=== PATIENT | male | born 1945 | race Caucasian/White ===

== ENCOUNTER 2018-03-12 14:21 | Inpatient (IN) | payer SELFPAY ==
[~2018-03-12] VITALS: Ht 167.6 cm; Wt 54.5 kg
[~2018-03-12 14:21] MED LIST: ALPR0.5T6 PO; ATEN1TAB4 PO; ATOR20TA58 PO; CITA10TA8 PO; GLIM2TAB2 PO; LISI-338 PO; METF500T16 PO
--- NOTE | 2018-03-12 14:30 | PHYS DOC ---
Past Medical History Past Medical History: Diabetes-Type II, Hypertension Past Surgical History: Cholecystectomy Alcohol Use: Rarely Drug Use: None Adult General HPI HPI 72-year-old male presents to ER via EMS after a fall at 1400 while walking to the bathroom. Patient reports he slipped causing him to fall backwards. Patient reports he struck the back of his head on the floor denies any loss of consciousness. Patient denies any neck or back pain. Patient denies any chest pain or symptoms prior to the fall. Patient states he does have a walker at home he uses but was not using at time of this fall. Patient reports over the past 1-2 weeks he has gradually been getting increasingly more fatigued denies any focal neuro deficits. Review of Systems Review of Systems Constitutional: Denies fever or chills. Denies LOC/lethargy. Reports generalized fatigue which has been gradually worsening over past 1-2 wks Eyes: Denies change in visual acuity, redness, or eye pain [] HENT: Denies nose bleed Respiratory: Denies cough or shortness of breath [] Cardiovascular: Denies CP/palpitations GI: Denies abdominal pain, nausea, vomiting, bloody stools or diarrhea. Reports was on way to bathroom- when he fell he was unable to get up in time. Pt reports he did have BM in his pants not at time of fall- he reports BM occurred after fall and during his attempt to get off floor : Denies dysuria or hematuria Musculoskeletal: Denies back/neck pain or joint pain [] Integument: Denies rash or skin lesions [] Neurologic: Denies headache, focal weakness or sensory changes [] All other systems were reviewed and found to be within normal limits, except as documented in this note. Allergies Allergies Allergies Coded Allergies Type Severity Reaction Last Updated Verified No Known Drug Allergies 03/02/18 No Physical Exam Physical Exam Constitutional: Well developed, well nourished, no acute distress, non-toxic appearance. Clear speech HENT: Normocephalic, tender to palp. posterior head- no open wounds/swelling- small area of ecchymosis, bilateral ears normal, oropharynx moist, no oral exudates/injury, nose normal. [] Eyes: 3mm PERRLA, EOMI- no pain with eye movements, no nystagmus, conjunctiva normal, no discharge. [] Neck: Normal range of motion, no tenderness- no midline cervical tenderness/ palp. deformity, supple, no stridor. [] Cardiovascular:Heart rate regular rhythm, no murmur [] Lungs & Thorax: Bilateral breath sounds clear to auscultation. Resp. equal/ nonlabored- no chest wall tenderness or injury Abdomen: Bowel sounds normal, soft- no distention/rigidity, no tenderness, no masses, no pulsatile masses. [] Skin: Warm, dry, no erythema, no rash. [] Back: No tenderness- no midline spinal tenderness- no visible injury, no CVA tenderness. [] Extremities: Pelvis stable/nontender. No tenderness, no cyanosis, no clubbing, ROM intact, no edema. [] Neurologic: Alert and oriented X 3, normal motor function, normal sensory function, no focal deficits noted. [] Psychologic: Affect normal, judgement normal, mood normal. [] Current Patient Data Vital Signs Vital Signs Date Time Temp Pulse Resp B/P (MAP) Pulse Ox O2 Delivery O2 Flow Rate FiO2 03/12/18 14:21 97.6 70 20 165/89 (114) 98 Room Air 97.6 Lab Values Laboratory Tests Test 03/12/18 14:35 03/12/18 14:39 White Blood Count 9.3 x10^3/uL (4.0-11.0) Red Blood Count 4.31 x10^6/uL (4.30-5.70) Hemoglobin 12.4 g/dL (13.0-17.5) L Hematocrit 36.5 % (39.0-53.0) L Mean Corpuscular Volume 85 fL (79-100) Mean Corpuscular Hemoglobin 29 pg (25-35) Mean Corpuscular Hemoglobin Concent 34 g/dL (31-37) Red Cell Distribution Width 14.9 % (11.5-14.5) H Platelet Count 227 x10^3/uL (140-400) Neutrophils (%) (Auto) 79 % (31-73) H Lymphocytes (%) (Auto) 14 % (24-48) L Monocytes (%) (Auto) 6 % (0-9) Eosinophils (%) (Auto) 0 % (0-3) Basophils (%) (Auto) 0 % (0-3) Neutrophils # (Auto) 7.3 x10^3uL (1.8-7.7) Lymphocytes # (Auto) 1.3 x10^3/uL (1.0-4.8) Monocytes # (Auto) 0.5 x10^3/uL (0.0-1.1) Eosinophils # (Auto) 0.0 x10^3/uL (0.0-0.7) Basophils # (Auto) 0.0 x10^3/uL (0.0-0.2) Sodium Level 140 mmol/L (136-145) Potassium Level 4.3 mmol/L (3.5-5.1) Chloride Level 99 mmol/L (98-107) Carbon Dioxide Level 28 mmol/L (21-32) Anion Gap 13 (6-14) Blood Urea Nitrogen 15 mg/dL (8-26) Creatinine 1.4 mg/dL (0.7-1.3) H Estimated GFR (Cockcroft-Gault) 49.8 BUN/Creatinine Ratio 11 (6-20) Glucose Level 126 mg/dL (70-99) H Calcium Level 9.2 mg/dL (8.5-10.1) Magnesium Level 1.9 mg/dL (1.8-2.4) Total Bilirubin 0.7 mg/dL (0.2-1.0) Aspartate Amino Transferase (AST) 35 U/L (15-37) Alanine Aminotransferase (ALT) 46 U/L (16-63) Alkaline Phosphatase 112 U/L (46-116) Troponin I Quantitative 0.029 ng/mL (0.000-0.055) Total Protein 6.3 g/dL (6.4-8.2) L Albumin 3.2 g/dL (3.4-5.0) L Albumin/Globulin Ratio 1.0 (1.0-1.7) Stool Occult Blood Negative (NEG) Laboratory Tests 03/12/18 14:35 Laboratory Tests 03/12/18 14:35 EKG EKG [] Radiology/Procedures Radiology/Procedures [] Course & Med Decision Making Course & Med Decision Making Pertinent Labs and Imaging studies reviewed. (See chart for details) [] Dragon Disclaimer Dragon Disclaimer This electronic medical record was generated, in whole or in part, using a voice recognition dictation system. Departure Departure Referrals: Snehal GONZÁLES MD (PCP) TICO GARCIA WHIPPER BEATER Mar 12, 2018 14:30
--- NOTE | 2018-03-12 14:40 | EKG ---
[facility] [address] [place] [address] Test Date: 2018-03-12 Test Time: 14:31:34 Pat Name: SABRA CAGLE Department: Room: Gender: M Civil Rights Representative: : 1945 Requested By: TICO GARCIA Order Number: [id number] Reading MD: Axel Pandey MD Measurements Intervals [place] Rate: 67 P: ND: QRS: -12 QRSD: 68 T: 56 QT: 394 QTc: 419 Interpretive Statements PROBABLE SR BASELINE ARTIFACT RECOMMEND REPEAT EKG Electronically Signed On 03-16-2018 8:36:07 SUBSTANCE ABUSE PREVENTION COORDINATOR by Axel Pandey MD
[2018-03-12 14:53] LABS: BASO % 0 % (0-3); EOS % 0 % (0-3); HEMATOCRIT 36.5 % (39.0-53.0); HEMOGLOBIN 12.4 g/dL (13.0-17.5); LYMPH # 1.3 x10^3/uL (1.0-4.8); LYMPH % 14 % (24-48); MEAN CORPUSCULAR HEMOGLOBIN 29 pg (25-35); MEAN CORPUSCULAR HGB CONC 34 g/dL (31-37); MEAN CORPUSCULAR VOLUME 85 fL (79-100); MONO # 0.5 x10^3/uL (0.0-1.1); MONO % 6 % (0-9); NEUT # 7.3 x10^3uL (1.8-7.7); NEUT % 79 % (31-73); PLATELET COUNT 227 x10^3/uL (140-400); RED BLOOD COUNT 4.31 x10^6/uL (4.30-5.70); RED CELL DISTRIBUTION WIDTH 14.9 % (11.5-14.5); WHITE BLOOD COUNT 9.3 x10^3/uL (4.0-11.0)
[2018-03-12 15:02] LABS: FECAL OB PT NEGATIVE (NEG)
[2018-03-12 15:08] LABS: CALCIUM 9.2 mg/dL (8.5-10.1); CREATININE 1.4 mg/dL (0.7-1.3); GFR 49.8; POTASSIUM 4.3 mmol/L (3.5-5.1)
--- NOTE | 2018-03-12 15:09 | RAD ---
Exam: AP portable chest History: Weakness, fall. Comparison: March 04, 2018. Findings: The heart and mediastinal structures are within normal limits for size. Lungs are without infiltrate. No pleural effusion or pneumothorax is identified. Cholecystectomy clips are seen. Impression: 1. No acute cardiopulmonary process. Electronically signed by: Mario Newton MD (03/12/2018 3:05 PM) [facility]
[2018-03-12 15:13] LABS: ALBUMIN 3.2 g/dL (3.4-5.0); MAGNESIUM 1.9 mg/dL (1.8-2.4); TOTAL BILIRUBIN 0.7 mg/dL (0.2-1.0); TOTAL PROTEIN 6.3 g/dL (6.4-8.2)
--- NOTE | 2018-03-12 15:35 | RAD ---
Examination: CT head and cervical spine without contrast HISTORY: History of fall, hitting the head COMPARISON: 03/05/2018 Exposure: One or more of the following individualized dose reduction techniques were utilized for this examination: 1. Automated exposure control 2. Adjustment of the mA and/or kV according to patient size 3. Use of iterative reconstruction technique TECHNIQUE: Axial CT images of the head was performed without contrast. Coronal reformats are performed. FINDINGS: There is no evidence of midline shift. The previously visualized bifrontal intraparenchymal bleeds again identified and have mildly decreased compared to prior exam. Mild vasogenic edema appears slightly more prominent compared to prior exam. There is mild increased density along the left tentorium likely small subdural bleed improved since prior exam. Mild prominent appearing lateral ventricles are again identified The basal cisterns are uneffaced. CT CERVICAL SPINE COMPARISON: None Available. Technique: 2.5 mm contiguous axial images were obtained from the skull base through the cervicothoracic junction in both bone and soft tissue algorithm. Additional sagittal and coronal reconstructions were also performed. FINDINGS: Vertebral body height and alignment are maintained. Cervical lordosis is preserved. The lateral masses of C1 are aligned upon C2. No fractures identified. The bony canal is patent throughout. Mild intervertebral disc height loss identified in the cervical spine throughout with moderate size anterior osteophyte formation identified at C2, C4, C5, C6 vertebral levels. The bilateral facets are well aligned. The paraspinous soft tissues are unremarkable. Impression: 1. Improved bifrontal intraparenchymal bleeds and the subdural bleed along the left tentorium slightly less prominent compared to prior exam. 2. No acute fracture the cervical spine. Correlate clinically. 3. Moderate degenerative changes cervical spine. Electronically signed by: Lukasz Huggins MD (03/12/2018 3:32 PM) [facility] [place] [facility]
[2018-03-12 16:52] LABS: BILIRUBIN,URINE NEGATIVE (NEG); CLARITY,URINE CLOUDY; COLOR,URINE YELLOW; NITRITE,URINE NEGATIVE (NEG); PH,URINE 5.5; PROTEIN,URINE NEGATIVE (NEG-TRACE)
[2018-03-12 17:07] LABS: BACTERIA,URINE 0 /HPF (0-FEW); HYALINE CASTS, URINE MODERATE /HPF
[2018-03-12 19:00] VITALS: BP 138/58
[2018-03-12 23:00] VITALS: BP 116/64
[2018-03-13 03:00] VITALS: BP 130/66
[2018-03-13 07:00] VITALS: BP 133/70
--- NOTE | 2018-03-13 08:58 | PDOC1 ---
History and Physical Date of Admission Date of Admission 03/12/18 Identification/Chief Complaint Chief Complaint He fell at home on the way to have a BM and was unable to get up and soiled himself. He got his walker at recent discharge but was not using it at the time of fall. He lives with his brother in a house with no power due to inability to pay bills. 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 His brain imaging studies show continued improvement of his recent subdural and ICH from a prior fall. No other significant medical issues Source Source: Patient History of Present Illness History of Present Illness as above in CC Past Medical History Cardiovascular: HTN Pulmonary: No pertinent hx Psych: Anxiety Renal/: No pertinent hx Endocrine: Diabetes Past Surgical History Past Surgical History: No pertinent history Family History Family History: Other Social History Smoke: No ALCOHOL: none Drugs: None Allergies Allergies Allergies Coded Allergies Type Severity Reaction Last Updated Verified No Known Drug Allergies 03/02/18 No ROS Review of System CONSTITUTIONAL: No fever or chills EYES: No recent changes SKIN: No rash or itching CARDIOVASCULAR: No chest pain, syncope, palpitations, or edema RESPIRATORY: No SOB or cough GASTROINTESTINAL: stool urgency but no diarrhea NEUROLOGICAL: resolved headache but ongoing slowly improving weakness ENDOCRINE: No cold or heat intolerance GENITOURINARY: No urgency or frequency of urination MUSCULOSKELETAL: No back pain or joint pain LYMPHATICS: No enlarged lymph nodes PSYCHIATRIC: hx anxiety/depression but did not fill Rx for citalopram Physical Exam Physical Exam GEN.: No apparent distress. Alert and oriented. HEENT: Head is normocephalic, atraumatic NECK: Supple. LUNGS: Clear to auscultation. HEART: RRR, S1, S2 present. Peripheral pulses intact ABDOMEN: Soft, nontender. Positive bowel sounds. EXTREMITIES: Without any cyanosis. NEUROLOGIC: Normal speech, normal tone PSYCHIATRIC: Normal affect, normal mood. SKIN: No ulcerations Vitals Vitals Vital Signs Date Time Temp Pulse Resp B/P (MAP) Pulse Ox O2 Delivery O2 Flow Rate FiO2 03/13/18 07:00 98.5 70 18 133/70 (91) 98 Room Air 98.5 Labs Labs Laboratory Tests Test 03/12/18 14:35 03/12/18 14:39 03/12/18 16:39 White Blood Count 9.3 x10^3/uL (4.0-11.0) Red Blood Count 4.31 x10^6/uL (4.30-5.70) Hemoglobin 12.4 g/dL (13.0-17.5) Hematocrit 36.5 % (39.0-53.0) Mean Corpuscular Volume 85 fL (79-100) Mean Corpuscular Hemoglobin 29 pg (25-35) Mean Corpuscular Hemoglobin Concent 34 g/dL (31-37) Red Cell Distribution Width 14.9 % (11.5-14.5) Platelet Count 227 x10^3/uL (140-400) Neutrophils (%) (Auto) 79 % (31-73) Lymphocytes (%) (Auto) 14 % (24-48) Monocytes (%) (Auto) 6 % (0-9) Eosinophils (%) (Auto) 0 % (0-3) Basophils (%) (Auto) 0 % (0-3) Neutrophils # (Auto) 7.3 x10^3uL (1.8-7.7) Lymphocytes # (Auto) 1.3 x10^3/uL (1.0-4.8) Monocytes # (Auto) 0.5 x10^3/uL (0.0-1.1) Eosinophils # (Auto) 0.0 x10^3/uL (0.0-0.7) Basophils # (Auto) 0.0 x10^3/uL (0.0-0.2) Sodium Level 140 mmol/L (136-145) Potassium Level 4.3 mmol/L (3.5-5.1) Chloride Level 99 mmol/L (98-107) Carbon Dioxide Level 28 mmol/L (21-32) Anion Gap 13 (6-14) Blood Urea Nitrogen 15 mg/dL (8-26) Creatinine 1.4 mg/dL (0.7-1.3) Estimated GFR (Cockcroft-Gault) 49.8 BUN/Creatinine Ratio 11 (6-20) Glucose Level 126 mg/dL (70-99) Calcium Level 9.2 mg/dL (8.5-10.1) Magnesium Level 1.9 mg/dL (1.8-2.4) Total Bilirubin 0.7 mg/dL (0.2-1.0) Aspartate Amino Transf (AST/SGOT) 35 U/L (15-37) Alanine Aminotransferase (ALT/SGPT) 46 U/L (16-63) Alkaline Phosphatase 112 U/L (46-116) Troponin I Quantitative 0.029 ng/mL (0.000-0.055) Total Protein 6.3 g/dL (6.4-8.2) Albumin 3.2 g/dL (3.4-5.0) Albumin/Globulin Ratio 1.0 (1.0-1.7) Stool Occult Blood Negative (NEG) Urine Collection Type Unknown Urine Color Yellow Urine Clarity Cloudy Urine pH 5.5 Urine Specific [place] 1.020 Urine Protein Negative mg/dL (NEG-TRACE) Urine Glucose (UA) Negative mg/dL (NEG) Urine Ketones (Stick) 40 mg/dL (NEG) Urine Blood Negative (NEG) Urine Nitrite Negative (NEG) Urine Bilirubin Negative (NEG) Urine Urobilinogen Dipstick 1.0 mg/dL (0.2 mg/dL) Urine Leukocyte Esterase Negative (NEG) Urine RBC 1-2 /HPF (0-2) Urine WBC 1-4 /HPF (0-4) Urine Bacteria 0 /HPF (0-FEW) Urine Hyaline Casts Moderate /HPF Urine Mucus Slight /LPF Laboratory Tests Test 03/12/18 14:35 03/12/18 14:39 03/12/18 16:39 White Blood Count 9.3 x10^3/uL (4.0-11.0) Red Blood Count 4.31 x10^6/uL (4.30-5.70) Hemoglobin 12.4 g/dL (13.0-17.5) Hematocrit 36.5 % (39.0-53.0) Mean Corpuscular Volume 85 fL (79-100) Mean Corpuscular Hemoglobin 29 pg (25-35) Mean Corpuscular Hemoglobin Concent 34 g/dL (31-37) Red Cell Distribution Width 14.9 % (11.5-14.5) Platelet Count 227 x10^3/uL (140-400) Neutrophils (%) (Auto) 79 % (31-73) Lymphocytes (%) (Auto) 14 % (24-48) Monocytes (%) (Auto) 6 % (0-9) Eosinophils (%) (Auto) 0 % (0-3) Basophils (%) (Auto) 0 % (0-3) Neutrophils # (Auto) 7.3 x10^3uL (1.8-7.7) Lymphocytes # (Auto) 1.3 x10^3/uL (1.0-4.8) Monocytes # (Auto) 0.5 x10^3/uL (0.0-1.1) Eosinophils # (Auto) 0.0 x10^3/uL (0.0-0.7) Basophils # (Auto) 0.0 x10^3/uL (0.0-0.2) Sodium Level 140 mmol/L (136-145) Potassium Level 4.3 mmol/L (3.5-5.1) Chloride Level 99 mmol/L (98-107) Carbon Dioxide Level 28 mmol/L (21-32) Anion Gap 13 (6-14) Blood Urea Nitrogen 15 mg/dL (8-26) Creatinine 1.4 mg/dL (0.7-1.3) Estimated GFR (Cockcroft-Gault) 49.8 BUN/Creatinine Ratio 11 (6-20) Glucose Level 126 mg/dL (70-99) Calcium Level 9.2 mg/dL (8.5-10.1) Magnesium Level 1.9 mg/dL (1.8-2.4) Total Bilirubin 0.7 mg/dL (0.2-1.0) Aspartate Amino Transf (AST/SGOT) 35 U/L (15-37) Alanine Aminotransferase (ALT/SGPT) 46 U/L (16-63) Alkaline Phosphatase 112 U/L (46-116) Troponin I Quantitative 0.029 ng/mL (0.000-0.055) Total Protein 6.3 g/dL (6.4-8.2) Albumin 3.2 g/dL (3.4-5.0) Albumin/Globulin Ratio 1.0 (1.0-1.7) Stool Occult Blood Negative (NEG) Urine Collection Type Unknown Urine Color Yellow Urine Clarity Cloudy Urine pH 5.5 Urine Specific [place] 1.020 Urine Protein Negative mg/dL (NEG-TRACE) Urine Glucose (UA) Negative mg/dL (NEG) Urine Ketones (Stick) 40 mg/dL (NEG) Urine Blood Negative (NEG) Urine Nitrite Negative (NEG) Urine Bilirubin Negative (NEG) Urine Urobilinogen Dipstick 1.0 mg/dL (0.2 mg/dL) Urine Leukocyte Esterase Negative (NEG) Urine RBC 1-2 /HPF (0-2) Urine WBC 1-4 /HPF (0-4) Urine Bacteria 0 /HPF (0-FEW) Urine Hyaline Casts Moderate /HPF Urine Mucus Slight /LPF Images Images CT head/neck and CXR noted VTE Prophylaxis Ordered VTE Prophylaxis Devices: No VTE Pharmacological Prophylaxi: No Assessment/Plan Assessment/Plan Fall, weakness. Admitted for social media content manager, PT, OT and treatment of depression Snehal GONZÁLES MD Mar 13, 2018 08:58
[2018-03-13] MEDS: CITALOPRAM 10 MG TABLET. PO SCH (09:05)
[2018-03-13 11:00] VITALS: BP 135/66
[2018-03-13 15:00] VITALS: BP 131/65
[2018-03-13 19:00] VITALS: BP 122/68
[2018-03-13] MEDS: ATORVASTATIN CALCIUM 20 MG TABLET PO SCH (22:02)
[2018-03-13 23:00] VITALS: BP 137/71
[2018-03-14 03:00] VITALS: BP 123/68
[2018-03-14 07:00] VITALS: BP 121/65
[2018-03-14] MEDS: CITALOPRAM 10 MG TABLET. PO SCH (09:24)
--- NOTE | 2018-03-14 11:40 | PDOC ---
PROGRESS NOTES Subjective Subjective Patient without complaint. No further diarrhea, no abdominal pain. Objective Objective Vital Signs Date Time Temp Pulse Resp B/P (MAP) Pulse Ox O2 Delivery O2 Flow Rate FiO2 03/14/18 07:00 97.9 60 18 121/65 (83) 93 Room Air 97.9 Intake and Output 03/14/18 07:00 Intake Total 360 ml Output Total 1100 ml Balance -740 ml Intake Oral 360 ml Output Urine Total 1100 ml # Voids 1 Physical Exam Abdomen: Normal bowel sounds, Soft, No tenderness Heart: Regular rate Extremities: No edema General: Alert, Oriented X3, No acute distress Lungs: Clear to auscultation Plan Plan of Care 1. Debility with falls at home - stable, continue therapies. 2. Diarrhea - appears to have resolved. 3. previous ICH - CT head shows this is resolving. 4. depression - continue Celexa. Comment Review of Relevant I have reviewed the following items calderon (where applicable) has been applied. Labs Laboratory Tests Test 03/12/18 14:35 03/12/18 14:39 03/12/18 16:39 White Blood Count 9.3 x10^3/uL (4.0-11.0) Red Blood Count 4.31 x10^6/uL (4.30-5.70) Hemoglobin 12.4 g/dL (13.0-17.5) Hematocrit 36.5 % (39.0-53.0) Mean Corpuscular Volume 85 fL (79-100) Mean Corpuscular Hemoglobin 29 pg (25-35) Mean Corpuscular Hemoglobin Concent 34 g/dL (31-37) Red Cell Distribution Width 14.9 % (11.5-14.5) Platelet Count 227 x10^3/uL (140-400) Neutrophils (%) (Auto) 79 % (31-73) Lymphocytes (%) (Auto) 14 % (24-48) Monocytes (%) (Auto) 6 % (0-9) Eosinophils (%) (Auto) 0 % (0-3) Basophils (%) (Auto) 0 % (0-3) Neutrophils # (Auto) 7.3 x10^3uL (1.8-7.7) Lymphocytes # (Auto) 1.3 x10^3/uL (1.0-4.8) Monocytes # (Auto) 0.5 x10^3/uL (0.0-1.1) Eosinophils # (Auto) 0.0 x10^3/uL (0.0-0.7) Basophils # (Auto) 0.0 x10^3/uL (0.0-0.2) Sodium Level 140 mmol/L (136-145) Potassium Level 4.3 mmol/L (3.5-5.1) Chloride Level 99 mmol/L (98-107) Carbon Dioxide Level 28 mmol/L (21-32) Anion Gap 13 (6-14) Blood Urea Nitrogen 15 mg/dL (8-26) Creatinine 1.4 mg/dL (0.7-1.3) Estimated GFR (Cockcroft-Gault) 49.8 BUN/Creatinine Ratio 11 (6-20) Glucose Level 126 mg/dL (70-99) Calcium Level 9.2 mg/dL (8.5-10.1) Magnesium Level 1.9 mg/dL (1.8-2.4) Total Bilirubin 0.7 mg/dL (0.2-1.0) Aspartate Amino Transf (AST/SGOT) 35 U/L (15-37) Alanine Aminotransferase (ALT/SGPT) 46 U/L (16-63) Alkaline Phosphatase 112 U/L (46-116) Troponin I Quantitative 0.029 ng/mL (0.000-0.055) Total Protein 6.3 g/dL (6.4-8.2) Albumin 3.2 g/dL (3.4-5.0) Albumin/Globulin Ratio 1.0 (1.0-1.7) Stool Occult Blood Negative (NEG) Urine Collection Type Unknown Urine Color Yellow Urine Clarity Cloudy Urine pH 5.5 Urine Specific [place] 1.020 Urine Protein Negative mg/dL (NEG-TRACE) Urine Glucose (UA) Negative mg/dL (NEG) Urine Ketones (Stick) 40 mg/dL (NEG) Urine Blood Negative (NEG) Urine Nitrite Negative (NEG) Urine Bilirubin Negative (NEG) Urine Urobilinogen Dipstick 1.0 mg/dL (0.2 mg/dL) Urine Leukocyte Esterase Negative (NEG) Urine RBC 1-2 /HPF (0-2) Urine WBC 1-4 /HPF (0-4) Urine Bacteria 0 /HPF (0-FEW) Urine Hyaline Casts Moderate /HPF Urine Mucus Slight /LPF Medications Current Medications Atorvastatin Calcium (Lipitor) 20 mg QHS PO Last administered on 03/13/18at 22: 02; Start 03/13/18 at 21:00 Citalopram Hydrobromide (CeleXA) 10 mg DAILY PO Last administered on 03/14/18at 09:24; Start 03/13/18 at 09:00 Active Scripts Active Atorvastatin Calcium 20 Mg Tablet 20 Mg PO QHS 30 Days Celexa (Citalopram Hydrobromide) 10 Mg Tablet 10 Mg PO DAILY 30 Days Vitals/I & O Vital Sign - Last 24 Hours 03/13/18 03/13/18 03/13/18 03/13/18 15:00 19:00 20:25 23:00 Temp 98.4 98.6 98.4 98.4 98.6 98.4 Pulse 76 70 69 Resp 18 B/P (MAP) 131/65 (87) 122/68 (86) 137/71 (93) Pulse Ox 98 96 95 O2 Delivery Room Air Room Air Room Air Room Air 03/14/18 03/14/18 03/14/18 03:00 07:00 07:00 Temp 98.3 97.9 97.9 98.3 97.9 97.9 Pulse 71 60 60 Resp 18 B/P (MAP) 123/68 (86) 121/65 (83) 121/65 (83) Pulse Ox 95 93 93 O2 Delivery Room Air Room Air Room Air Intake and Output 03/13/18 03/13/18 03/14/18 15:00 23:00 07:00 Intake Total 180 ml 180 ml Output Total 300 ml 125 ml 675 ml Balance -120 ml 55 ml -675 ml Nutrition Consultation Dietary Evaluation: Recommendations by RD: Increase Calorie Intake, Protein supplementation Comments: glucerna tid Expected Outcomes/Goals: to meet > 75% est nutr needs Malnutrition Findings: Body Fat Depletion (Non Severe: Mild Depletion Weight Status: Appropriate GERONIMO KNIGHT MD Mar 14, 2018 11:40
[2018-03-14 11:50] VITALS: BP 100/59
[2018-03-14 15:43] VITALS: BP 121/65
[2018-03-14 19:00] VITALS: BP 122/69
[2018-03-14] MEDS: ATORVASTATIN CALCIUM 20 MG TABLET PO SCH (20:42)
[2018-03-14 23:00] VITALS: BP 122/58
[2018-03-15 02:55] VITALS: BP 134/65
[2018-03-15 07:00] VITALS: BP 123/63
[2018-03-15] MEDS: CITALOPRAM 10 MG TABLET. PO SCH (08:33)
[2018-03-15 11:00] VITALS: BP 117/63
--- NOTE | 2018-03-15 13:48 | PDOC ---
PROGRESS NOTES Subjective Subjective Patient without complaint. Had normal bowel movement this AM. Objective Objective Vital Signs Date Time Temp Pulse Resp B/P (MAP) Pulse Ox O2 Delivery O2 Flow Rate FiO2 03/15/18 11:00 98.5 71 18 117/63 (81) 97 Room Air 98.5 Intake and Output 03/15/18 07:00 Intake Total 840 ml Output Total 1250 ml Balance -410 ml Intake Oral 840 ml Output Urine Total 1250 ml Physical Exam Abdomen: Normal bowel sounds, Soft, No tenderness Heart: Regular rate Extremities: No edema General: Alert, Oriented X3, No acute distress Lungs: Clear to auscultation Plan Plan of Care 1. Falls at home with debility - therapies have not worked with patient for the past two days (no notes on chart). Advised increased activity level. Would benefit from long-term but this is not available to him without insurance. 2. diarrhea - resolved. Comment Review of Relevant I have reviewed the following items calderon (where applicable) has been applied. Medications Current Medications Atorvastatin Calcium (Lipitor) 20 mg QHS PO Last administered on 03/14/18at 20: 42; Start 03/13/18 at 21:00 Citalopram Hydrobromide (CeleXA) 10 mg DAILY PO Last administered on 03/15/18at 08:33; Start 03/13/18 at 09:00 Active Scripts Active Atorvastatin Calcium 20 Mg Tablet 20 Mg PO QHS 30 Days Celexa (Citalopram Hydrobromide) 10 Mg Tablet 10 Mg PO DAILY 30 Days Vitals/I & O Vital Sign - Last 24 Hours 03/14/18 03/14/18 03/14/18 03/14/18 15:43 19:00 20:00 23:00 Temp 98.5 97.8 98.3 98.5 97.8 98.3 Pulse 67 72 68 Resp 18 18 18 B/P (MAP) 121/65 (83) 122/69 (86) 122/58 (79) Pulse Ox 94 92 96 O2 Delivery Room Air Room Air Room Air Room Air 03/15/18 03/15/18 03/15/18 03/15/18 02:55 07:00 08:00 09:56 Temp 98.3 97.9 98.3 97.9 Pulse 65 64 Resp 18 18 B/P (MAP) 134/65 (88) 123/63 (83) Pulse Ox 96 98 O2 Delivery Room Air Room Air Room Air Room Air 03/15/18 11:00 Temp 98.5 98.5 Pulse 71 Resp 18 B/P (MAP) 117/63 (81) Pulse Ox 97 O2 Delivery Room Air Intake and Output 03/14/18 03/14/18 03/15/18 15:00 23:00 07:00 Intake Total 640 ml 200 ml Output Total 200 ml 600 ml 450 ml Balance -200 ml 40 ml -250 ml Nutrition Consultation Dietary Evaluation: Recommendations by RD: Increase Calorie Intake, Protein supplementation Comments: glucerna tid Expected Outcomes/Goals: to meet > 75% est nutr needs Malnutrition Findings: Body Fat Depletion (Non Severe: Mild Depletion Weight Status: Appropriate GERONIMO KNIGHT MD Mar 15, 2018 13:48
[2018-03-15 15:00] VITALS: BP 124/64
[2018-03-15 19:00] VITALS: BP 139/67
[2018-03-15] MEDS: ATORVASTATIN CALCIUM 20 MG TABLET PO SCH (21:38)
[2018-03-15 23:00] VITALS: BP 139/69
[2018-03-16 03:00] VITALS: BP 135/64
[2018-03-16 07:00] VITALS: BP 122/65
[2018-03-16] MEDS: CITALOPRAM 10 MG TABLET. PO SCH (09:38)
[2018-03-16 11:00] VITALS: BP 108/55
[2018-03-16 15:00] VITALS: BP 115/60
--- NOTE | 2018-03-16 17:39 | PDOC3 ---
Discharge Summary [facility] Date of Admission: Mar 12, 2018 Discharge Date: Mar 16, 2018 Admitting Diagnosis FALL, WEAKNESS Final Diagnosis Fall, weakness CONSULTS none Procedures none Brief Hospital Course Mr. Armenta is a 72 old who presented with a fall at home, he had just been admitted with a prior fall causing a subdural and intracranial bleed and recovered well enough to be home. He had some bowel urgency and was trying to get to the bathroom without his walker and fell. He soiled himself. He was brought by ambulance to the ER and again soiled himself there. His brain was re -imaged and no further bleeding had occurred ( improved), no evidence of new head trauma was found. He was admitted, his loose bowels resolved, he received PT/OT and is up with his walker and able to do self care and ready for discharge. He has been given info on assistance with services by our Social Dept as he and his brother currently do no have power. He has been eating and drinking well and not showing any signs of lingering concussion or other late effects of head trauma. He was just mildly malnourished at admission and he was mildly dehydrated, likely from his loose stools CONDITION AT DISCHARGE: Improved, Stable Diet diabetic Scheduled Atorvastatin Calcium (Atorvastatin Calcium), 20 MG PO QHS Citalopram Hydrobromide (Celexa), 10 MG PO DAILY Discontinued Medications Alprazolam (Alprazolam), 1 TAB PO TID PRN for ANXIETY / AGITATION, (Reported) Atenolol/Chlorthalidone (Atenolol-Chlorthalidone 100-25), 0.5 TAB PO DAILY PRN for ELEVATED BP, SEE COMMENTS, (Reported) Glimepiride (Glimepiride), 1 TAB PO DAILY, (Reported) Lisinopril (Lisinopril), 1 TAB PO DAILY, (Reported) Metformin Hcl (Metformin Hcl), 500 MG PO BIDWMEALS, (Reported) Follow Up 1-2 weeks Patient Instructions Pt states he is likely to be non - compliant with DC meds and is unlikely to f/ u with the director of social work offered Snehal GONZÁLES MD Mar 16, 2018 17:39
== END 2018-03-16 19:55 | disposition home or self-care (01) | DRG 641 ==
LOC: ER 14:21 → 5 NORTH 16:55
PROVIDERS: ADMIT Family Medicine; ATTEND Family Medicine
DX: E86.0 Dehydration (principal); E44.1 Mild protein-calorie malnutrition; Z68.1 Body mass index [BMI] 19.9 or less, adult; F32.9 Major depressive disorder, single episode, unspecified; I10 Essential (primary) hypertension; E11.9 Type 2 diabetes mellitus without complications; W01.0XXA Fall on same level from slipping, tripping and stumbling without subsequent striking against object, initial encounter; F41.9 Anxiety disorder, unspecified; Y93.89 Activity, other specified; Y92.89 Other specified places as the place of occurrence of the external cause; Y99.8 Other external cause status; Z90.49 Acquired absence of other specified parts of digestive tract
CPT/HCPCS: 36415; 70450; 71045; 72125; 80053; 81001; 82274; 83735; 84484; 85025; 93005; 97116; 97530; 97535; 99285-25

== ENCOUNTER 2021-04-30 15:16 | Emergency (ER) | payer MEDICAID, OTHER ==
[~2021-04-30] VITALS: Ht 167.6 cm; Wt 62.9 kg
[~2021-04-30 15:16] MED LIST changes: -GLIM2TAB2 PO; +GLIM2TAB7 PO; -LISI-338 PO; +LISI5TAB15 PO
[2021-04-30] MEDS ORDERED: DIPHTH,PERTUSS(ACELL),TET TOX 0.5 ML DISP.SYRIN. VAX IM ONE (17:00)
[2021-04-30] MEDS ORDERED: LIDOCAINE/EPI/TETRACAINE TOPICAL GEL 3 ML. TP ONE (17:00)
--- NOTE | 2021-04-30 17:36 | RAD ---
CT HEAD AND C-SPINE WO Date: 04/30/2021 4:53 PM Clinical Indication: Reason: fall LOC / Spl. Instructions: / History: Comparison: CT head from 03/05/2018. Technique: 5 mm axial tomographic images were obtained of the head without contrast. These were view ed on brain and bone windows. Noncontrast CT of the cervical spine was performed. Sagittal and mcbride l reformats were performed and evaluated. One or more of the following dose reduction techniques were utilized: Automated exposure control (AEC), Adjustment of mA and/or kV according to patient size, Us e of iterative reconstruction technique such as ASiR, CT scan done according to ALARA and image gentl y/image wisely HEAD FINDINGS: Mild generalized cerebral and cerebellar volume loss. Mild nonspecific periventricular hypoattenuatio n, most commonly seen with chronic small vessel ischemic disease. Asymmetric bifrontal encephalomalac ia from remote ischemia, left greater than right. No intra- or extra-axial mass or fluid collection. No acute hemorrhage. The ventricles are normal in size, shape, and morphology. The adam-white matter junction is normal. The basilar cisterns are paten t. The visualized paranasal sinuses are normal. The visualized portions of the orbits and globes are no rmal. The mastoid air cells are clear. No aggressive osseous lesion or fracture. CERVICAL SPINE FINDINGS: The cervical spine is normally aligned. No acute fracture. No aggressive lytic or blastic osseous les ions. Mild multilevel degenerative disc space height loss. Multilevel mild spinal canal stenosis secondary to disc protrusions and marginal osteophytes. Multilevel mild neuroforaminal narrowing secondary to u ncovertebral arthrosis. Multilevel moderate facet arthrosis. The thyroid gland is normal. No cervical lymphadenopathy. Bilateral carotid atherosclerosis. The visu alized aerodigestive tract is normal. The visualized portions of the lungs are clear. IMPRESSION: 1. No acute intracranial process. 2. No acute cervical spine fracture. 3. Mild to moderate degenerative changes of the cervical spine. Electronically signed by: Jose A Newby DO (04/30/2021 5:33 PM) [facility]
--- NOTE | 2021-04-30 17:51 | RAD ---
EXAMINATION: CT THORACIC SPINE WO, CT LUMBAR SPINE WO, CT LOWER RIGHT EXTREMITY WITHOUT CONTRAST INDICATION:75 years, Male, fall loss of consciousness, right hip pain. COMPARISON: CT abdomen from 03/04/2018. TECHNIQUE: CT imaging of the thoracic spine was performed without contrast. Coronal and sagittal ref ormatted images were performed. One or more of the following dose reduction techniques were utilized: Automated exposure control (AEC), Adjustment of mA and/or kV according to patient size, Use of itera tive reconstruction technique such as ASiR, CT scan done according to ALARA and image gently/image wi sely. FINDINGS: Thoracic spine: The thoracic spine is normally aligned. No acute fracture. Vertebral body heights are maintained with out compression deformity. The intervertebral disc spaces are relatively preserved. 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 No aggressive lytic or blastic osseous lesion. No significant spinal canal stenosis or neural foraminal narrowing. The visualized lungs are clear. No pleural effusion. The visualized thoracic aorta is normal caliber. Similar atherosclerotic disease of the thoracic aorta and coronary arteries. Lumbar spine: There are 5 nonrib-bearing lumbar vertebrae. The lumbar spine is normally aligned. No acute fracture. Vertebral body heights are maintained. The intervertebral disc space is preserved. There are a few s mall osteophytes arising off predominantly the anterior endplates of the vertebral bodies. Multilevel facet arthrosis most pronounced at the L4-L5 and L5-S1 facet joints. There is no aggressive lytic or blastic osseous lesions. No severe central canal or neuroforaminal narrowing. The visualized retroperitoneal structures in straight no evidence of acute abnormality. Essentially u nchanged soft tissue mass adjacent to the medial aspect of the lower pole of the right kidney, appear s smaller in size when compared to the 2018 exam, favoring a benign etiology. Colonic diverticulosis without evidence of diverticulitis. Bladder is unremarkable. Similar calcified atherosclerotic diseas e of the aorta and major branching vessels. There is mild degenerative changes of bilateral SI joints. Right hip: There is no evidence of acute fracture or dislocation. Joint spaces are normal. Mild degenerative ost eoarthritis of the right hip. Soft tissues are unremarkable. IMPRESSION: 1. No acute osseous abnormality of the thoracic or lumbar spine. 2. No evidence of acute fracture or dislocation of the right hip. 3. Other chronic/incidental findings, as above. Electronically signed by: Jose A Newby DO (04/30/2021 5:49 PM) [facility], [facility]
[2021-04-30 17:54] VITALS: BP 144/66
--- NOTE | 2021-04-30 20:08 | PHYS DOC ---
Past Medical History Past Medical History: Diabetes-Type II, Hypertension Past Surgical History: Cholecystectomy Smoking Status: Never Smoker Alcohol Use: None Drug Use: None General Adult EDM: Chief Complaint: LACERATION/AVULSION HPI: HPI: Patient is a 75 year old male who presents to the ED today with a right eyebrow laceration and right hip pain. Patient states he was walking in hand-held and fell. Patient states he does not know if he passed out before or after falling. Denies any chest pain, shortness of breath. She states after falling they tried calling 911 for him and he refused medical help. He got into his car and drove home and then came back to the hospital. Right now he is refusing care. Review of Systems: Review of Systems: Constitutional: Denies fever or chills. [] Eyes: Denies change in visual acuity. [] HENT: Denies nasal congestion or sore throat. [] Respiratory: Denies cough or shortness of breath. [] Cardiovascular: Denies chest pain or edema. [] GI: Denies abdominal pain, nausea, vomiting, bloody stools or diarrhea. [] : Denies dysuria. [] Musculoskeletal: Reports right hip pain Integument: Reports right upper eyebrow laceration Neurologic: Denies headache, focal weakness or sensory changes. [] Endocrine: Denies polyuria or polydipsia. [] Lymphatic: Denies swollen glands. [] Psychiatric: Denies depression or anxiety. [] Heart Score: C/O Chest Pain: N/A Risk Factors: Risk Factors: DM, Current or recent (<one month) smoker, HTN, HLP, family history of CAD, obesity. Risk Scores: Score 0 - 3: 2.5% MACE over next 6 weeks - Discharge Home Score 4 - 6: 20.3% MACE over next 6 weeks - Admit for Clinical Observation Score 7 - 10: 72.7% MACE over next 6 weeks - Early Invasive Strategies Current Medications: Current Medications Medications (Trade) Dose Ordered Sig/Bety Start Time Stop Time Status Last Admin Dose Admin Diphtheria/ Tetanus/Acell Pertussis (Boostrix) 0.5 ml ONCE ONCE 04/30/21 17:00 04/30/21 17:01 DC Tetracaine/ Epinephrine/ Lidocaine (Let (Vsby-Rqytgzz-Mxboc) Gel) 3 ml 1X ONCE 04/30/21 17:00 04/30/21 17:01 DC 04/30/21 17:21 3 ML Allergies: Allergies: Allergies Coded Allergies Type Severity Reaction Last Updated Verified No Known Drug Allergies 03/02/18 No Physical Exam: PE: Constitutional: Well developed, well nourished, no acute distress, non-toxic appearance. [] HENT: Normocephalic, bilateral external ears normal, oropharynx moist, no oral exudates, nose normal. [] Eyes: PERRLA, EOMI, conjunctiva normal, no discharge. [] Neck: Normal range of motion, no tenderness, supple, no stridor. [] Cardiovascular:Heart rate regular rhythm Lungs & Thorax: Bilateral breath sounds clear to auscultation [] Abdomen: Bowel sounds normal, soft, no tenderness, no masses, no pulsatile masses. [] Skin: Right upper eyebrow with a laceration approximately 1 cm long. Bilateral feet with fungal infections Back: No tenderness, no CVA tenderness. [] Extremities: Tenderness on palpation of the right lateral hip. Full passive range of motion to the right hip. +2 right pedal pulse. Cap refill less than 2 seconds bilateral lower extremities. Neurologic: Alert and oriented X 3, normal motor function, normal sensory function, no focal deficits noted. Cranial nerves II through XII intact Psychologic: Affect normal, judgement normal, mood normal. [] Current Patient Data: Vital Signs: Vital Signs Date Time Temp Pulse Resp B/P (MAP) Pulse Ox O2 Delivery O2 Flow Rate FiO2 04/30/21 17:54 80 20 144/66 (92) 98 04/30/21 17:15 98.0 Room Air 98.0 EKG: EK interpreted by Dr. Granados sinus rhythm heart rate 78 no STEMI [] Radiology/Procedures: Radiology/Procedures: []PROCEDURE: CT HEAD AND CERVICAL SPINE WO CT HEAD AND C-SPINE WO Date: 04/30/2021 4:53 PM Clinical Indication: Reason: fall LOC / Spl. Instructions: / History: Comparison: CT head from 03/05/2018. Technique: 5 mm axial tomographic images were obtained of the head without contrast. These were viewed on brain and bone windows. Noncontrast CT of the cervical spine was performed. Sagittal and coronal reformats were performed and evaluated. One or more of the following dose reduction techniques were utilized: Automated exposure control (AEC), Adjustment of mA and/or kV according to patient size, Use of iterative reconstruction technique such as ASiR, CT scan done according to ALARA and image gently/image wisely HEAD FINDINGS: Mild generalized cerebral and cerebellar volume loss. Mild nonspecific periventricular hypoattenuation, most commonly seen with chronic small vessel ischemic disease. Asymmetric bifrontal encephalomalacia from remote ischemia, left greater than right. No intra- or extra-axial mass or fluid collection. No acute hemorrhage. The ventricles are normal in size, shape, and morphology. The adam-white matter junction is normal. The basilar cisterns are patent. The visualized paranasal sinuses are normal. The visualized portions of the orbits and globes are normal. The mastoid air cells are clear. No aggressive osseous lesion or fracture. CERVICAL SPINE FINDINGS: The cervical spine is normally aligned. No acute fracture. No aggressive lytic or blastic osseous lesions. Mild multilevel degenerative disc space height loss. Multilevel mild spinal canal stenosis secondary to disc protrusions and marginal osteophytes. Multilevel mild neuroforaminal narrowing secondary to uncovertebral arthrosis. Multilevel moderate facet arthrosis. The thyroid gland is normal. No cervical lymphadenopathy. Bilateral carotid atherosclerosis. The visualized aerodigestive tract is normal. The visualized portions of the lungs are clear. IMPRESSION: 1. No acute intracranial process. 2. No acute cervical spine fracture. 3. Mild to moderate degenerative changes of the cervical spine. Electronically signed by: Marcela Newby DO (04/30/2021 5:33 PM) [facility] DICTATED and SIGNED BY: MARCELA NEWBY DO DATE: 04/30/21 [id number] Laceration/Wound Repair Laceration/Wound Repair : [] Wound Location: Right upper eyebrow Wound's Depth, Shape: Horizontal Wound Length (cm): Approximately 1 cm Wound Explored: clean Irrigated w/ Saline (ccs): 20 Betadine Prep?: Yes Anesthesia: Betadine Volume Anesthetic (ccs): 1 mL Wound Repaired With: Dissolvable gut Suture Size/Type: 5.0/interrupted sutures Number of Sutures: 4 Course & Med Decision Making: Course & Med Decision Making Pertinent Labs and Imaging studies reviewed. (See chart for details) This is a 75-year-old male patient who presents to the ED today to be evaluated after falling at a local store. It is unknown if he had any loss of consciousness. Patient refusing work-up right now. Refused a tetanus shot. Refused labs. Refuses EKG. Accepted CT of the head, cervical spine, thoracic lumbar spine and right hip which were negative for any acute findings. Laceration was repaired. Patient refused to be worked up in the ED. He decided to sign out AMA. He is alert oriented x4 and able to make his own decisions. He was given the risk of leaving AMA including , disability, worsening condition. He proceeded to leave AMA Dragon Disclaimer: Dragon Disclaimer: This electronic medical record was generated, in whole or in part, using a voice recognition dictation system. Departure Departure Impression: Primary Impression: Fall from standing Qualified Codes: W19.XXXA - Unspecified fall, initial encounter Additional Impressions: Eyebrow laceration Qualified Codes: S01.111A - Laceration without foreign body of right eyelid and periocular area, initial encounter Contusion of face Qualified Codes: S00.83XA - Contusion of other part of head, initial encounter Right hip pain Disposition: LEFT AGAINST MEDICAL ADVICE Condition: STABLE Referrals: Snehal GONZÁLES MD (PCP) [facility] Apr 30, 2021 20:08
== END 2021-04-30 19:15 | disposition left against medical advice (07) ==
LOC: ER 15:16
DX: S01.111A Laceration without foreign body of right eyelid and periocular area, initial encounter (principal); M25.551 Pain in right hip; E11.9 Type 2 diabetes mellitus without complications; I10 Essential (primary) hypertension; W18.39XA Other fall on same level, initial encounter; Y93.01 Activity, walking, marching and hiking; Y92.89 Other specified places as the place of occurrence of the external cause; Y99.8 Other external cause status
CPT/HCPCS: 12011; 70450; 72125; 72128; 72131; 73700; 99284